=== PATIENT | male | born 1990 | race Caucasian/White ===

== ENCOUNTER → 2016-12-27 | Outpatient (CLI) | payer OTHER ==
[~2016-12-27] MED LIST: IOPAMIDOL (ISOVUE-300) 100 ML BTL IV ONE
--- NOTE | 2016-12-27 15:38 | CT ---
CT Soft Tissue Neck With Contrast Enhancement History: Left-sided swelling and discomfort. Nonsmoker with no cancer history. Comparison: None available. Technique: Axial computed tomographic images of the neck soft tissues obtained from the skull base to the thoracic inlet during the uneventful intravenous administration of 100 mL Isovue-300 contrast. D ose reduction techniques were utilized. Findings: The palpable marker overlies the left submandibular region, adjacent to normal-appearing st ernocleidomastoid and submandibular gland and normal caliber lymph nodes. The visible orbits are norm al. The visible brain is normal. The parotid, submandibular, and thyroid glands are normal. Scattered mildly prominent lymph nodes are present without pathologic enlargement. No soft tissue masses are i dentified. The nasopharynx, oropharynx, and hypopharynx are symmetric. The major vasculature of the n radha is normal. Mild congenital spinal canal narrowing is present. Mild uncovertebral spondylosis is p resent from C5 through C7 with mild annular bulges and mild spinal canal narrowing at C6-C7. The lung apices are clear. Impression: 1. No visible etiology for the patient's palpable finding. Clinical follow up is recommended. 2. 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
== END ==
LOC: FIMAGING 10:41
PROVIDERS: ATTEND Otolaryngology
DX: R22.1 Localized swelling, mass and lump, neck (principal)
CPT/HCPCS: Q9967

== ENCOUNTER → 2018-03-27 | Outpatient (CLI) | payer OTHER | LOC: BRMIMAGING 08:17 | PROVIDERS: ATTEND Family Medicine | DX: Z13.29 Encounter for screening for other suspected endocrine disorder (principal); I88.9 Nonspecific lymphadenitis, unspecified; R07.81 Pleurodynia; R07.89 Other chest pain; R61 Generalized hyperhidrosis ==